=== PATIENT | female | born 1990 ===

== ENCOUNTER 2017-07-23 13:08 | Inpatient (IN) | payer MEDICAID ==
[2017-07-23 13:33] VITALS: BMI 33.1
[2017-07-23] MEDS: Lactated Ringer's 1,000 ML IV SCH ×2 (14:39→16:00)
[2017-07-23 15:00] LABS: BASO % 0.5 % (0.0-2.0); EOS # 0.1 K/uL (0.0-0.7); HEMOGLOBIN 12.8 g/dL (12.0-16.0); LYMPH # 1.5 K/uL (1.0-4.3); LYMPH % 15.6 % (20.0-40.0); MEAN CELL VOLUME 78.7 fl (81.0-99.0); MEAN CORPUSCULAR HEMOGLOBIN 25.7 pg (27.0-31.0); MEAN CORPUSCULAR HGB CONC 32.6 g/dL (33.0-37.0); MEAN PLATELET VOLUME 11.3 fl (7.2-11.7); MONO # 0.4 K/uL (0.0-0.8); MONO % 4.3 % (0.0-10.0); NEUT # 7.5 K/uL (1.8-7.0); NEUT % 78.6 % (50.0-75.0); NRBC % 0.1 % (0.0-0.0); RBC 4.97 Mil/uL (3.80-5.20); RED CELL DISTRIBUTION WIDTH 15.2 % (11.5-14.5); WHITE BLOOD COUNT 9.6 K/uL (4.8-10.8)
[2017-07-23] MEDS ORDERED: Oxytocin 30 units/LR 500ML 30 U/500 ML BAG IV SCH (15:15)
[2017-07-23 15:31] LABS: ALB/GLOB RATIO 0.9 (1.0-2.1); ALBUMIN 3.6 g/dL (3.5-5.0); ALT/SGPT 26 U/L (9-52); AST/SGOT 24 U/L (14-36); BLOOD UREA NITROGEN 10 mg/dl (7-17); CALCIUM 9.1 mg/dL (8.4-10.2); GFR AFRICAN-AMERICAN > 60; GFR NON-AFRICAN AMERICAN > 60; URIC ACID 4.7 mg/Dl (2.2-7.5)
[2017-07-23 16:20] LABS: SQUAMOUS EPITHIAL 3 /hpf (0-5); URINE BACTERIA RARE (<OCC); URINE BILIRUBIN NEGATIVE (NEGATIVE); URINE BLOOD NEGATIVE (NEGATIVE); URINE CLARITY SLIGHTY-CLOUDY (Clear); URINE COLOR STRAW (YELLOW); URINE GLUCOSE (UA) NEG (Normal); URINE LEUKOCYTE ESTERASE MOD Leu/uL (Negative); URINE PROTEIN NEGATIVE (NEGATIVE); URINE UROBILINOGEN 0.2-1.0 mg/dL (0.2-1.0)
[2017-07-23] MEDS ORDERED: ceFAZolin 2 GM in Sodium Chloride 0.9% 100 ML IVPB ONE (16:27)
[2017-07-23 16:37] LABS: BARBITURATES, UR NEGATIVE (NEGATIVE); BENZODIAZEPINES, UR NEGATIVE (NEGATIVE); OPIATES, UR NEGATIVE (NEGATIVE); PHENCYCLIDINE, UR NEGATIVE (NEGATIVE)
[2017-07-23] MEDS ORDERED: Betamethasone Soluspan 30 mg/5mL Inj Susp IM ONE ×2 (17:33→17:38)
[2017-07-23] MEDS ORDERED: Magnesium Sul 40GM/1L SW 40 GM/1,000 ML ML IV ONE ×2 (17:50→17:51)
[2017-07-23] MEDS ORDERED: Magnesium Sulfate 4 gm/100 ml 4 GM/100 ML BAG IV ONE (17:50)
[2017-07-23] MEDS ORDERED: Morphine 5 mg/10 ml preservative-free Inj(Duramorph) ONE (18:11)
--- NOTE | 2017-07-23 18:12 | OBADHP ---
Datetime: 07/23/2017 15:37 Admit Comment, IP Provider: This is 27 y/o female, , IUP@ 36.3, sent to the [facility] by Dr. Solares for evaluation and treatment of high BP and Thrombocytopenia. 145/91 and plt 122 Patient denies any chest pain, SOB, dizziness or urinary symptoms. PNC: [facility], Dr. Solares PNI: + PAP PMH: Hx of Incompetent cervix ,cerclage placed at 14 wks PSH: and keloids Allg: NKDA FH: Denies OBGYN: 1 x PT due to rupture, 2 mis solitario at 20 and 18 weeks SH: Marijuana use around she got , denies any use after. ROS: Unremarkable VS: 149/93, FHT 130 PE: as above A/P: This is 27 y/o female, , IUP@ 36.3, sent to the [facility] by Dr. Solares for evaluation and treatme nt of high BP and Thrombocytopenia. 145/91 and plt 122 - PEC work up - Admit patient - Labs - Monitor VS, NST - NPO - Initiate protocol Case discussed with Dr. Dominguez --- Omaira Manriquez, PGY-1 Addendum: Patient with blood pressures of 150s to 160s over 90s consistently at labor and delivery. Patient also complaining of headache over the past day. Patient's last ultrasound on 07/02/2017 reports estim ated weight in the 9th percentile. I discussed case with M who recommended delivery due to se dena -induced hypertension and IUGR. I discussed plan with patient and recommended repeat today due to the above findings. I discussed the risks, benefits, alternatives of . I also discussed with patient the risks of prematurity. Patient consented for and cerclage removal. Patient given 1 dose of betamethasone. Magnesium sulfate started. Anesthesia notified. Angelica Pelvic Type - PN: Not Done Extremities - PN: Normal Abdomen - PN: Normal Back - PN: Normal Breast - PN: Not Done Lungs - PN: Normal Heart - PN: Normal Thyroid - PN: Normal Neurologic - PN: Normal HEENT - PN: Normal General - PN: Normal FHR - Baseline A Provider: 130 IP Hx Assessment: The History has been Reviewed and is Current Vital Signs Provider: Reviewed Vital Signs Provider Details: High BP IP Chief Complaint: Maternal discomfort NICHD Variability Prov Fetus A: Moderate 6-25bpm NICHD Accel Fetus A IP Provider: [id number] FHR Category Provider Fetus A: Category I NICHD Decel Fetus A IP Provider: None Genitourinary Exam: Not Done DTRs - PN: Not Done EGA AdmitDate IP: 36.3 IP Adm Impression: , intrauterine IP Admit Plan: Admit to unit; Initiate Section protocol; Observation/Evaluation
[2017-07-23] MEDS ORDERED: Oxycodone/Acetaminophen 5/325 mg Tab PO PRN ×2 (19:48)
[2017-07-23] MEDS ORDERED: Lactated Ringer's 1,000 ML IV SCH ×2 (20:00→21:07)
[2017-07-23] MEDS ORDERED: DiphenhydrAMINE 50 mg/ml Inj IVP PRN ×2 (20:07→21:07)
[2017-07-23] MEDS: Oxycodone/Acetaminophen 5/325 mg Tab PO PRN (21:49)
[2017-07-23] MEDS ORDERED: Simethicone 80 mg Chewtab PO SCH (22:00)
[2017-07-24] MEDS: Lactated Ringer's 1,000 ML IV SCH ×2 (00:30→15:34)
[2017-07-24] MEDS: Oxycodone/Acetaminophen 5/325 mg Tab PO PRN ×4 (03:18→20:46)
[2017-07-24] MEDS: Simethicone 80 mg Chewtab PO SCH ×4 (04:07→22:13)
[2017-07-24 09:29] LABS: HEMOGLOBIN 11.2 g/dL (12.0-16.0); MEAN CELL VOLUME 78.4 fl (81.0-99.0); MEAN CORPUSCULAR HGB CONC 31.8 g/dL (33.0-37.0); RBC 4.5 Mil/uL (3.80-5.20); RED CELL DISTRIBUTION WIDTH 14.8 % (11.5-14.5); WHITE BLOOD COUNT 15.5 K/uL (4.8-10.8)
[2017-07-24 13:00] LABS: ALB/GLOB RATIO 0.9 (1.0-2.1); ALBUMIN 3.2 g/dL (3.5-5.0); ALT/SGPT 26 U/L (9-52); AST/SGOT 28 U/L (14-36); BLOOD UREA NITROGEN 7 mg/dl (7-17); CALCIUM 7.3 mg/dL (8.4-10.2); GFR AFRICAN-AMERICAN > 60; GFR NON-AFRICAN AMERICAN > 60
--- NOTE | 2017-07-24 13:44 | OBPPN ---
Datetime: 07/24/2017 05:35 PP Pain Prov: Within normal limits PP Nausea Prov: Denies PP Flatus Prov: No PP BM Prov: No PP Breasts Prov: Normal PP Heart Prov: Normal PP Lungs Prov: Normal PP Abdomen/Uterus Prov: Normal PP Lochia Prov: Normal PP Vulva/Perineum Prov: Normal PP CVA Tenderness Prov: Normal PP Extremities Prov: Normal PP C/S Incision Prov: Normal PP Progress Prov: Normal PP Impression Prov: Normal progression PP Plan Prov: Continue present management PP Progress Note Prov: S: 27 YO POD1, s/p repeat on 07/23/17. Pt is seen and examined i n l_D this morning as she recuperates. No acute overnight events, BP remains stable at this time. Pt is endorsing abdominal pain but tolerable with meds. Not yet ambulating. Perez in place, will d/c th is AM. Bleeding has improved since delivery. Not yet passing gas. Denies chest pain, dyspnea, headach e, blurry vision, n/v, fever/chills, diarrhea, nausea/vomiting. Desires Circ for baby. O: VS: wnl, afebrile GEN: Awake, alert and baby boy in crib by bedside. HEENT: EOMI, moist mucosa. LUNGS: CTA B/L, no wheezing, rhonci, or rales CVS: RRR, S1,S2 no murmurs ABD: ND, +BS, soft abdomen, firm fundus, tender around incision area, fundus at umbilicus. Dressing intact, no discharge noted. EXT: No edema, neg calf tenderness NEURO/PSYCHI: AAOx3, no grossly focal deficit, preserved affect and mood. Assessment/Plan: 27 YO POD1, s/p repeat for PIH, on 07/23/17, gave to a baby will y. Pt remains afebrile, BP stable, tolerating pain with medication, NPO, and perez intact. Doing well on POD1. -will adance diet as tolerated. -d/c perez this AM -OOB with caution SCDs for DVT prophylaxis -continue to monitor blood pressure -continue Mg+ -Ibuprofen 600 mg for pain prn -C/w Colace 100mg PO BID -Encourage and early ambulation. Kisha Sanon, PGY I Addendum by Dr. Baird: I have evaluated the patient independently and I agree with the above Vital Signs Provider PP: Reviewed; Within Normal Limits
--- NOTE | 2017-07-24 14:22 | OBDS ---
DELIVERY PERSONNEL Delivery Doctor: Betsy Dominguez MD Scrub Nurse: Ting Beaulieu Anesthesiologist: Tre Bright Resident: GUILLAUME Manriquez MATERNAL INFORMATION Delivery Anesthesia: Spinal Medications in Delivery: Magnesium , Pitocin SEE MAR Estimated Blood Loss (ml): 800 Placenta Cultured: Yes Maternal Complications: Other Other Maternal Complications: PIH RN Comments: 19:20 Report endorsed Manuela Duggan RN, count correct, verified by both RN's Provider Comments: Repeat low flap transverse section via Pfannenstiel incision. Patient de livered viable male with Apgars of 9 and 9 at one and 5 minutes respectively. Positive meconiu m. Positive evidence of placental abruption. Estimated blood loss 800 mL Fluids 1300 mL lactated Ringer's Urine output 300 mL of clear urine No complications LABOR SUMMARY EDC: 08/17/2017 00:00 No. Babies in Womb: 1 Attempted: No Labor Anesthesia: Spinal LABOR INFORMATION Reason for Induction: Gest. HTN/PreEclampsia/Eclampsia Group B Beta Strep: N/A MEMBRANES Membranes Rupture Method: Artificial Rupture of Membranes: 07/23/2017 18:59 Length of Rupture (hrs): 0.02 Amniotic Fluid Color: Clear Amniotic Fluid Amount: Moderate Amniotic Fluid Odor: Normal STAGES OF LABOR Stage 3 hrs: 0 Stage 3 min: 1 CSECTION DELIVERY Primary Indication: Severe PIH, Unfavorable Cervix Secondary Indication: Repeat Elective CSection Urgency: Non Elective CSection Incidence: Repeat Labor: N/A Elective: Nonelective CSection Incision: Lower Uterine Transverse Uterine Closure: Single-layer closure BABY A INFORMATION Infant Delivery Date/Time: 07/23/2017 19:00 Method of Delivery: Born in Route : No : N/A Forceps: N/A Vacuum Extraction: N/A Shoulder Dystocia : No SHOULDER DYSTOCIA BABY A Infant Delivery Date/Time: 07/23/2017 19:00 PRESENTATION/POSITION BABY A Presentation: Cephalic PLACENTA INFORMATION BABY A Placenta Delivery Time : 07/23/2017 19:01 Placenta Method of Delivery: Manual Removal Placenta Status: Delivered SCORES BABY A Heart Rate 1 min: >100 bpm Resp Effort 1 min: Good Cry Reflex Irritability 1 min: Cough or Sneeze or Pulls Away Muscle Tone 1 min: Active Motion Color 1 min: Body [place], Extremities Blue SCORE 1 MIN: 9 Heart Rate 5 min: >100 bpm Resp Effort 5 min: Good Cry Reflex Irritability 5 min: Cough or Sneeze or Pulls Away Muscle Tone 5 min: Active Motion Color 5 min: Body [place], Extremities Blue SCORE 5 MIN: 9 INFANT INFORMATION BABY A Gestational Age at Delivery: 36.3 Gestational Status: Outcome : Liveborn Condition : Stable Infant Sex: Male IDENTIFICATION/MEDS BABY A ID Band Number: [id number] ID Band Location: Left Leg; Left Arm WEIGHT/LENGTH BABY A Infant Birthweight (gms): 2210 Infant Weight (lb): 4 Weight (oz): 14 CORD INFORMATION BABY A No. Cord Vessels: 3 Nuchal Cord : N/A Cord Blood Taken: Yes Infant Suction: Mouth; Nose ASSESSMENT BABY A Infant Complications: Meconium Physical Findings at Delivery: Within Normal Limits Infant Respirations: Appears Normal Email Production Specialist/ALS Called : Yes Care By: Transferred To: Nursery
--- NOTE | 2017-07-24 21:30 | OP ---
PROCEDURE DATE: 07/23/2017 PREOPERATIVE DIAGNOSES: Severe induced hypertension at 36 weeks gestational age, intrauterine growth restriction, and prior section. POSTOPERATIVE DIAGNOSES: Severe induced hypertension at 36 weeks gestational age, intrauterine growth restriction, and prior section. PROCEDURE PERFORMED: Repeat low-flap transverse section via Pfannenstiel incision. Cervical cerclage removal. OPERATIVE FINDINGS: Viable male with Apgars of 9 and 9 at one and five minutes respectively, normal uterus, normal tubes and ovaries bilaterally. Positive thick meconium. Positive evidence of placental abruption. SURGEON: Danny Dominguez MD TYPE OF ANESTHESIA: Spinal. ANESTHESIA ADMINISTERED BY: Zheng Bright MD ESTIMATED BLOOD LOSS: 800 mL. FLUIDS: 1300 mL of lactated Ringer's. URINE OUTPUT: 300 mL of clear urine at the end of procedure. COMPLICATIONS: No complications. DESCRIPTION OF PROCEDURE: The patient was taken to the operating room where spinal anesthesia was found to be adequate. The patient was prepped and draped in the normal sterile fashion in the dorsal supine position with a leftward tilt. A Pfannenstiel skin incision was made with a scalpel. This was carried down through to the underlying layer of fascia with the scalpel. Midline defect was made in the fascial layer with the scalpel. The fascial incision was then extended bilaterally with curved Vinson scissors. The fascial layer was from the rectus muscles both bluntly and sharply with the curved Vinson scissors. The rectus muscles were at the midline. The peritoneum was then identified, tented up with More clamps x2, and entered sharply with Metzenbaum scissors. This peritoneal incision was then extended superiorly and inferiorly with good visualization of the urinary bladder. A bladder blade was inserted into the abdomen. The vesicouterine peritoneum was then identified, tented up with More clamps x2, and entered sharply with Metzenbaum scissors. This peritoneal incision was then extended bilaterally with Metzenbaum scissors. The bladder flap was created digitally. The [place] retractors were placed over the urinary bladder. The uterus was incised with a scalpel. The uterine incision was extended bilaterally bluntly. The infant's head was delivered atraumatically. Nose and mouth were suctioned with bulb suction. The remainder of the was delivered without complication. The cord was clamped and cut. The infant was handed off to awaiting pediatricians. Cord gases were collected. Cord blood was collected. The placenta was removed manually. The uterus was cleared of all clots and debris. The uterine incision was repaired with 0 Vicryl in a running, locked fashion. Reinspection of this incision was found to be hemostatic. The abdomen and pelvis were irrigated with copious amounts of warm normal saline. Reinspection of the uterine incision proved excellent hemostasis. All instruments were removed from the patient. The peritoneal layer was closed with a running stitch of 2-0 chromic. The rectus muscles were reapproximated with a running stitch of 2-0 chromic. The fascial layer was closed with a running stitch of 0 Vicryl. Subcutaneous tissue was closed with a running stitch of 3-0 plain. The skin was closed with altagracia. The patient tolerated the procedure well. All sponge, lap count, and needle counts were correct x2. The patient was given 2 g of Ancef just prior to the beginning of the procedure. There were no complications. The patient was taken to the recovery room in awake and stable condition. Danny Dominguez MD
[2017-07-25] MEDS: Oxycodone/Acetaminophen 5/325 mg Tab PO PRN ×4 (01:44→19:49)
[2017-07-25] MEDS: Simethicone 80 mg Chewtab PO SCH ×4 (03:46→23:05)
--- NOTE | 2017-07-25 07:57 | OBPPN ---
Datetime: 07/25/2017 05:59 PP Pain Prov: Within normal limits PP Nausea Prov: Denies PP Flatus Prov: No PP BM Prov: No PP Breasts Prov: Normal PP Heart Prov: Normal PP Lungs Prov: Normal PP Abdomen/Uterus Prov: Normal PP Lochia Prov: Normal PP Vulva/Perineum Prov: Normal PP CVA Tenderness Prov: Not Done PP Extremities Prov: Normal PP C/S Incision Prov: Normal PP Progress Prov: Not Applicable PP Impression Prov: Normal progression PP Plan Prov: Continue present management PP Progress Note Prov: S: 27 YO POD2, s/p repeat on 07/23/17. Pt is seen and examined b y bedside this AM. No acute overnight events. Pt is endorsing abdominal pain and soreness, but contr olled with pain meds. Pt is ambulating to the bathroom without any difficulties. Bleeding has improve d since delivery. Tolerating PO diet. - BM/-Flatus. Currently bottlefeeding baby, will try and breast feed later. Denies chest pain, headaches, blurry vision, dyspnea, n/v/d/c, fever/chills. O: VS: wnl, afebrile GEN: Awake, alert, pt holding baby. HEENT: EOMI, moist mucosa. LUNGS: CTA B/L, no wheezing, rhonci, or rales CVS: RRR, S1, S2 no murmurs ABD: ND, +BS, soft abdomen, firm fundus, below umbilicus. [place] intact; incision healing well, no discharge noted. EXT: No edema, neg calf tenderness NEURO/PSYCHI: AAOx3, no grossly focal deficit, preserved affect and mood. Assessment/Plan: 27 YO POD2, s/p repeat on 07/23/17, gave to a baby boy. Pt rem ains afebrile, tolerating pain with medication, good PO intake and urinating without any difficulties . Doing well on POD2. -C/w regular diet as tolerated. -OOB with caution SCDs for DVT prophylaxis -continue to monitor blood pressure -s/p Mg -Ibuprofen 600 mg for pain prn -C/w Colace 100mg PO BID -Encourage ambulation and . Kisha Sanon, PGY I OB Hospitalist Addendum: Pt seen and examined by me. Agree w/ above. POD 2 s/p repeat c/s, doing well, bottle feeding for now. Incision intact w/ altagracia. Continue current care. (ES) Vital Signs Provider PP: Reviewed; Within Normal Limits
[2017-07-26] MEDS: Oxycodone/Acetaminophen 5/325 mg Tab PO PRN ×2 (01:15→07:19)
[2017-07-26] MEDS: Simethicone 80 mg Chewtab PO SCH ×2 (05:00→11:47)
--- NOTE | 2017-07-26 10:26 | OBPPN ---
Datetime: 07/26/2017 07:27 PP Pain Prov: Within normal limits PP Nausea Prov: Denies PP Flatus Prov: Yes PP BM Prov: No PP Heart Prov: Normal PP Lungs Prov: Normal PP Abdomen/Uterus Prov: Normal PP Lochia Prov: Normal PP CVA Tenderness Prov: Normal PP Extremities Prov: Normal PP C/S Incision Prov: Normal PP Progress Prov: Normal PP Impression Prov: Normal progression PP Plan Prov: Discharge PP Progress Note Prov: S: 27 y/o POD3, s/p repeat on 07/23/17. Pt is seen and examined by bedside this AM. No acute overnight events. Pt still c/o lower abdominal pain and pelvic pain that aggravates with urination and walking, pain is cramping at times, 7/10 intensity and improves with m edication. Pt requesting pain meds at 4hrs intervals. Pt is afebrile, tolerating PO, ambulating with no difficulties. Lochia is decreasing in quantity since delivery. Pt reports passing gasses but NO will wel movement yet. Pt is pumping breastmilk, will try to breastfeed later. Denies chest pain, headache s, blurry vision, dyspnea, n/v/d/c, fever/chills, calf tenderness O: VS WNL except for BP _ 145/81-mildly elevated. VS: wnl, afebrile GEN: Awake, alert, comfortable resting on bed. HEENT: EOMI, moist mucosa. LUNGS: CTA B/L, no wheezing, rhonci, or rales CVS: RRR, S1, S2 no murmurs ABD: ND, +BS, soft abdomen, firm fundus, below umbilicus. incision with altagracia is clean dry and intact, with no discharge, bleeding traces or suppuration. EXT: No edema, neg calf tenderness NEURO/PSYCHI: AAOx3, no grossly focal deficit, preserved affect and mood. Assessment/Plan: 27 YO on POD3. Pt remains afebrile, tolerating pain with medication, good PO intake, mild elevation of BP. Recovering well overall. -Will discharge today -Rx for Ibuprofen 600 mg and Percocet 5/325 will be provided to patient. -Pt instructed to f/u with PMD within 1 week for wound check and in 6 weeks for post- examin ation. Rx for Colace 100mg PO daily given. -Encourage ambulation and . -Pt educated on pain medication's side effects. -DYFS to re-evalute patient today, before discharge. Case discussed with OB-hospitalist control panel tester. GTolealex PGY-1. Addendum by Dr. Baird: I have evaluated the patient independently and I agree with the above IP PP Procedures: None Vital Signs Provider PP: Reviewed
[2017-07-26 17:57] VITALS: BP 144/78; PULSE 61; RESP 20; TEMP 97.4; O2SAT 100
== END 2017-07-26 13:50 | disposition home or self-care (01) | DRG 370 ==
LOC: H.EROB2 13:08 → H.L&D 14:35 → H.OB/GYN 07-24 18:11
PROVIDERS: ADMIT Obstetrics & Gynecology; ATTEND Obstetrics & Gynecology
PROC: 10D00Z1 Extraction of Products of Conception, Low, Open Approach (ICD-10-PCS; principal; 2017-07-23)
PROC: 4A1HXCZ Monitoring of Products of Conception, Cardiac Rate, External Approach (ICD-10-PCS; 2017-07-23)
DX: O34.211 Maternal care for low transverse scar from previous cesarean delivery (principal); D69.6 Thrombocytopenia, unspecified; O13.4 Gestational [pregnancy-induced] hypertension without significant proteinuria, complicating childbirth; N85.8 Other specified noninflammatory disorders of uterus; Z37.0 Single live birth; Z3A.36 36 weeks gestation of pregnancy; O36.5930 Maternal care for other known or suspected poor fetal growth, third trimester, not applicable or unspecified; O45.93 Premature separation of placenta, unspecified, third trimester; O77.0 Labor and delivery complicated by meconium in amniotic fluid; O99.12 Other diseases of the blood and blood-forming organs and certain disorders involving the immune mechanism complicating childbirth